=== PATIENT | female | born 1965 | race Caucasian/White ===

== ENCOUNTER 2017-07-03 14:30 | Outpatient (RCR) | payer BC, SELFPAY ==
--- NOTE | 2017-04-03 15:48 | HP.OTEVAL_ITS ---
Patient's Visit Information SANDRA SILVA is a 52 year old F, referred to Occupational Therapy by TORIBIO MENDEZ,RHEA MENDEZ,TORIBIO, with a diagnosis of subarachnoid hemorrhage. Date of Evaluation: 04/03/17 Occupational Therapist: Ewa Whalen - Subjective Subjective: Pt admitted to hospital 03/09/17 with subarachnoid hemorrhage, hydrocephalus. Pt lives w/ her spouse and daughters. 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 Pt initial visit for OT has demonstrated decreased strength and coordination of R UE and decreased ability to complete BADLs/IADLs, along with occassional decreased perpheral vision R side. - Objective Objective/Observation: Pt states she fatigues easily. She demonstrates decreased R UE fine motor coordination and strength. Pt concerned with completing multi-step tasks for her occupation as a web production assistant. Pt would benefit from occupational therapy services to increase her R hand coordination, R UE strength and increase independence with sequencing of multi- step directions for BADLs/IADLs. - ROM ROM Comments: BUE ROM WFL - Strength Shoulder: RIGHT 4-/5 LEFT 4+/5 Elbow: RIGHT 4-/5 LEFT 4+/5 Forearm: RIGHT 4-/5 LEFT 4+/5 Wrist: RIGHT 4-/5 LEFT 4+/5 Trim Master Operator: RIGHT 42# LEFT 42# Lateral Pinch: RIGHT 9#, LEFT 9# - Edema Other: NO EDEMA NOTED - Sensation Sensation Comments: PT STATES NO NUMBNESS/TINGLING - Visual/Perceptual Skills Comments: DECREASED RIGHT PERIPHERAL VISION OCCASSIONALY. INCONSISTANTLY WILL BECOME BLURRY. NO SPECIFIC TIME. - Cognitive Skills Follows Directions: Yes Oriented to (Check all that apply): Place Short Term Memory Impaired: No Cognitive Comments: PT STATES CONCERNED WITH MULTI TASKING AND SEQUENCING THROUGH TASKS 2' HER JOB REQUIRES LOTS OF MULTI TASKING. - Transfers Transfers: INDEPENDENT W/ FUNCTIONAL TRANSFERS - Nine Hole Peg Right: 26.4 SECONDS Left: 19.9 SECONDS Comments: RIGHT HAND DOMINANT - Stroke Specific Quality of Life Total SS-QOL Score: 194 - DASH-Disabilities of Arm, Shoulder& Hand DASH Sum: 39 - Goals Goal:: PT WILL PROGRESS W/ R UE STRENGTH 4+/5 TO ASSIST W/ BADLS/IADLS. Goal:: PT WILL PROGRESS W/ R HAND COORDINATION/DEXTERITY WITH DECREASED TIME IN 9 HOLE PEG TEST BY 5 SECONDS. Goal:: Pt will be educated on BUE HEP to maintain BUE strength for BADLS/IADLS w / good understanding and followthrough 100%x. Goal:: PT WILL BE ABLE TO CORRECTLY SEQUENCE THROUGH A 3 TO 4 MULTI-STEP BADL/ IADL TASK INDEPENDENTLY WITHOUT CUES NEEDED. Goal:: PT WILL BE ABLE TO USE BILATERAL COORDINATION TASKS TO TYPE A 5 SENTENCE PARAGRAPH ON KEYBOARD WITHIN 2 MINUTES. - Rehabilitation General Assessment: PT DEMO WITH DECREASED R UE COORDINATION AND R UE STRENGTH. Rehabilitation Potential: Excellent - Anticipated Interventions Anticipated Interventions: Strengthening, Fine Motor Coord/Jose Angel, ADL Training , Caregiver Training, Home Program - Visit Plan Frequency: 1-2x /Week Duration: 4 Weeks General Plan: increase pts R UE coordination/dexterity, R UE strength, educate on BUE HEP and independence w/ all BADLS/IADLS to return pt back to [facility]. TEXT: Thank you for the opportunity to evaluate your patient. For Medicare and Medicare HMO plans, please review the plan of care and approve it. It will need to be FAXED BACK to us at [phone] for Medicare purposes. Please let me know if there are questions or concerns regarding this plan of care. Physician Signature: Date:
--- NOTE | 2017-04-03 18:02 | HP.SP.AD ---
History - History Date of Eval: 04/03/17 Attending Doctor: Linda Sharp PA-C Referring Doctor: Linda Sharp PA-C Reason for Referral: Cognitive deficits status post subarachnoid hemorrhage Medical Diagnosis (from RX): Subacrachnoid hemorrhage (I60.9) Date of Onset of Diagnosis: 03/09/2017 Previous speech therapy: No Other Relevant Medical History/Diagnoses/Surgery: No significant past medical history prior to 03/09/2017 subarachnoid hemorrhage; associated complications include hydrocephalus, intraventricular hemorrhage, malnutrition of mild degree, Takotsubo cardiomyopathy, cerebral aneurysm, seizure, acute respiratory failure requiring intubation (03/10/2017 to 03/12/2017), upper gastrointestinal bleed. Medications related to this diagnosis: Discharge medications included: Acetaminophen 325mg. Aspirin 325 mg. Cetrizine / Zyrtex 10mg. Clopidogrel / Plavix 75mg. Triamcinolone acetonide / Kenelog 0.1% oitment. Senna-docusate / Senna-S 8.6-50mg Smoking Status: Never smoker Hx Smoking: No Hx Tobacco Use: No - Pain Is pain an issue with your current prescribed condition?: No - Personal Right Hearing Abillity: Normal Left Hearing Abillity: Normal Patient Allergies - Allergies Allergies No Known Allergies Allergy (Verified 03/09/17 18:51) CLQT - CLQT CLQT Administered: Yes CLQT: Cognitive Linguistic Quick Test (CLQT) is a criterion - referenced assessment designed for adults between the ages of 18 and 89 with known or suspected neurological dysfuntions. The CLQT is to assess strength and weaknesses in five cognitive domains. Severity ratings are within normal limits, mild, moderate, severe deficits. The subtests are as follows: Date: 04/03/17 - Attention Attention: WNL - Memory Memory: WNL - Executive Functions Executive Functions: WNL - Language Language: WNL - Visuospatial Skills Visuospatial Skills: WNL - Composite Severity Rating Composite Severity Rating: WNL - Clock Drawing Severity Rating Clock Drawing Severity Rating: WNL - CLQT Comments Patient scoring in lower portions of limitation for executive functioning (score 28, range 40-24) and mid-range for attention (score 197, range 215-180), with the Patient considered to be a very HIGH functioning adult prior to the subarachnoid hemorrhage, as 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 The Patient demonstrated frequent rushed completion with little attention to detail, suggesting significant impact despite good performance scores. . Plan - Plan Plan: Patient is a 52 year old female who presented to [facility] Emergency Department on 03/09/2017 due to sudden onset syncopal episode with loss of consciousness for several minutes without prodromal symptoms, Patient remained unresponsive until squad arrived, workup revealed an abnormal EKG with suspected heart attack, identified Takotsubo cardiomyopathy, later found to develop confusion, aphasia, and right sided hemiparesis with further workup revealing a subarachnoid hemorrhage with the Patient subsequently transferred to [facility]. Patients care complicated by acute respiratory failure requiring intubation (03/10/2017 to 03/12/2017), reported treatment for pneumonia (reported by family). Documentation provided by family further suggests Patients seizure activity causing / contributing to symptoms due to the relatively short duration of recovery. Patient and Patients family all report no skilled speech-language intervention to date, with the Patient yet to return to prior level of functioning. Patient and Patients family report current struggles with organization and attention, planning, and problem solving noted, further complicated by cognitive fatigue. 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 03/10/2017 CT revealed extensive subarachnoid hemorrhage within the basilar cisterns and over both cerebral convexities with intraventricular extension with concern for developing obstructive hydrocephalus, status post fright fontal approach vetriculostomy catheter placement. 03/11/2017 EGD revealed mild reflux esophagitis, non-bleeding erosive gastropathy. 03/14/2017 CT revealed development of low attenuation within the left hypothalamus consistent with acute infarct, no hemorrhagic conversion. Patient presenting with mild executive functioning deficits and mild attention deficits secondary to a subarachnoid hemorrhage complicated by seizure activity and multiple comorbidities during course of treatment. 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 The Patient demonstrated frequent rushed completion with little attention to detail, suggesting significant impact despite good performance scores. Further cognitive fatigue noted following 25 minutes of activity, with relatively rapid onset of fatigue likely to significantly impact work performance upon return. Patient requires continued skilled speech-language intervention targeting both executive functioning and attention via training and implementation of both internal and external compensatory strategies to facilitate return to the highest level of safe, independent functioning at home and within the vocational setting. Would further recommend objective assessment of the oropharyngeal swallow function due to the Patients reported complications with pneumonia following respiratory failure requiring intubation, and subarachnoid hemorrhage, with the Patient and family reporting no workup to date. - Recommendations MBS: Yes Treatment Warranted: Yes - Frequency Frequency: 1x/Week Duration: 4 Months - Prognosis Prognosis: Excellent - Goals that are Established: Determination:: Goals will be added/modified as deemed necessary and appropriate. Therapy will be discontinued when results of re-evaluation indicate therapy is no longer needed or lack of progress has been documented. - Goal #1-5 Goal #1: Patient will utilize compensatory executive functioning / processing strategies identified and implemented during structured therapeutic tasks (i.e., note taking / list making, adhering to schedules, remove distractions, formulate a plan, double check work, talk out loud, ect.) to facilitate improved cognitive processing and achievement of the highest level of safe, independent functioning Prompts: Min Accuracy: 100% # Sessions: 2 Goal #2: Patient will participate in a Modified Barium Swallow (MBS) study to objectively assess the Pt.s oropharyngeal swallowing function, to determine the least restrictive means of nutrition, and to identify appropriate intervention approaches / strategies to implement during treatment sessions at the supervised level. Prompts: Min Education - Patient has Indicated that the Following Identified Educational Needs: None The Patient has indicated that they have no educational or learning abilities that may effect their care.: Yes - Patient Instruction Patient Education: Diagnosis, Treatment Plan, Goals, Safety Precautions Person Taught: Patient Teaching Method: Discussion Response to teaching: Verbalize understanding
--- NOTE | 2017-04-03 18:05 | HP.SP.AD_ITS ---
History - History Date of Eval: 04/03/17 Attending Doctor: Linda Sharp PA-C Referring Doctor: Linda Sharp PA-C Reason for Referral: Cognitive deficits status post subarachnoid hemorrhage Medical Diagnosis (from RX): Subacrachnoid hemorrhage (I60.9) Date of Onset of Diagnosis: 03/09/2017 Previous speech therapy: No Other Relevant Medical History/Diagnoses/Surgery: No significant past medical history prior to 03/09/2017 subarachnoid hemorrhage; associated complications include hydrocephalus, intraventricular hemorrhage, malnutrition of mild degree , Takotsubo cardiomyopathy, cerebral aneurysm, seizure, acute respiratory failure requiring intubation (03/10/2017 to 03/12/2017), upper gastrointestinal bleed. Medications related to this diagnosis: Discharge medications included: Acetaminophen 325mg. Aspirin 325 mg. Cetrizine / Zyrtex 10mg. Clopidogrel / Plavix 75mg. Triamcinolone acetonide / Kenelog 0.1% oitment. Senna-docusate / Senna-S 8.6-50mg Smoking Status: Never smoker Hx Smoking: No Hx Tobacco Use: No - Pain Is pain an issue with your current prescribed condition?: No - Personal Right Hearing Abillity: Normal Left Hearing Abillity: Normal Patient Allergies - Allergies Allergies No Known Allergies Allergy (Verified 03/09/17 18:51) CLQT - CLQT CLQT Administered: Yes CLQT: Cognitive Linguistic Quick Test (CLQT) is a criterion - referenced assessment designed for adults between the ages of 18 and 89 with known or suspected neurological dysfuntions. The CLQT is to assess strength and weaknesses in five cognitive domains. Severity ratings are within normal limits , mild, moderate, severe deficits. The subtests are as follows: Date: 04/03/17 - Attention Attention: WNL - Memory Memory: WNL - Executive Functions Executive Functions: WNL - Language Language: WNL - Visuospatial Skills Visuospatial Skills: WNL - Composite Severity Rating Composite Severity Rating: WNL - Clock Drawing Severity Rating Clock Drawing Severity Rating: WNL - CLQT Comments Patient scoring in lower portions of limitation for executive functioning ( score 28, range 40-24) and mid-range for attention (score 197, range 215-180), with the Patient considered to be a very HIGH functioning adult prior to the subarachnoid hemorrhage, as 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 The Patient demonstrated frequent rushed completion with little attention to detail, suggesting significant impact despite good performance scores. . Plan - Plan Plan: Patient is a 52 year old female who presented to [facility] Emergency Department on 03/09/2017 due to sudden onset syncopal episode with loss of consciousness for several minutes without prodromal symptoms, Patient remained unresponsive until squad arrived, workup revealed an abnormal EKG with suspected heart attack, identified Takotsubo cardiomyopathy, later found to develop confusion, aphasia, and right sided hemiparesis with further workup revealing a subarachnoid hemorrhage with the Patient subsequently transferred to [facility]. Patients care complicated by acute respiratory failure requiring intubation (03/10/2017 to 09/2016), reported treatment for pneumonia (reported by family). Documentation provided by family further suggests Patient?s seizure activity causing / contributing to symptoms due to the relatively short duration of recovery. Patient and Patients family all report no skilled speech-language intervention to date, with the Patient yet to return to prior level of functioning. Patient and Patients family report current struggles with organization and attention, planning, and problem solving noted, further complicated by cognitive fatigue. 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 03/10/2017 CT revealed extensive subarachnoid hemorrhage within the basilar cisterns and over both cerebral convexities with intraventricular extension with concern for developing obstructive hydrocephalus , status post fright fontal approach vetriculostomy catheter placement. 2016 EGD revealed mild reflux esophagitis, non-bleeding erosive gastropathy. CT revealed development of low attenuation within the left hypothalamus consistent with acute infarct, no hemorrhagic conversion. Patient presenting with mild executive functioning deficits and mild attention deficits secondary to a subarachnoid hemorrhage complicated by seizure activity and multiple comorbidities during course of treatment. 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 The Patient demonstrated frequent rushed completion with little attention to detail, suggesting significant impact despite good performance scores. Further cognitive fatigue noted following 25 minutes of activity, with relatively rapid onset of fatigue likely to significantly impact work performance upon return. Patient requires continued skilled speech- language intervention targeting both executive functioning and attention via training and implementation of both internal and external compensatory strategies to facilitate return to the highest level of safe, independent functioning at home and within the vocational setting. Would further recommend objective assessment of the oropharyngeal swallow function due to the Patients reported complications with pneumonia following respiratory failure requiring intubation, and subarachnoid hemorrhage, with the Patient and family reporting no workup to date. - Recommendations MBS: Yes Treatment Warranted: Yes - Frequency Frequency: 1x/Week Duration: 4 Months - Prognosis Prognosis: Excellent - Goals that are Established: Determination:: Goals will be added/modified as deemed necessary and appropriate. Therapy will be discontinued when results of re-evaluation indicate therapy is no longer needed or lack of progress has been documented. - Goal #1-5 Goal #1: Patient will utilize compensatory executive functioning / processing strategies identified and implemented during structured therapeutic tasks (i.e. , note taking / list making, adhering to schedules, remove distractions, formulate a plan, double check work, talk out loud, ect.) to facilitate improved cognitive processing and achievement of the highest level of safe, independent functioning Prompts: Min Accuracy: 100% # Sessions: 2 Goal #2: Patient will participate in a Modified Barium Swallow (MBS) study to objectively assess the Pt.?s oropharyngeal swallowing function, to determine the least restrictive means of nutrition, and to identify appropriate intervention approaches / strategies to implement during treatment sessions at the supervised level. Prompts: Min Education - Patient has Indicated that the Following Identified Educational Needs: None The Patient has indicated that they have no educational or learning abilities that may effect their care.: Yes - Patient Instruction Patient Education: Diagnosis, Treatment Plan, Goals, Safety Precautions Person Taught: Patient Teaching Method: Discussion Response to teaching: Verbalize understanding
--- NOTE | 2017-04-06 14:13 | HP.PTEVAL_ITS ---
Patient's Visit Information SANDRA SILVA is a 52 year old F referred to Physical Therapy by TORIBIO HSU with a diagnosis of SAH, gait difficulty. Date of Evaluation: 04/03/17 Physical Therapist: Oscar Garces - Visit Plan Frequency: 2x /Week Duration: 4 Weeks Plan: Start with R hip, RLE strengthening, dynamic balance/coordinations training. Monitor response to treatment and progress as tolerated. - Subjective Subjective: Pt. is here today for her initial evaluation with diagnosis of subarachnoid hemrorhage, hydrocephalus and gait abnormality. Pt admitted to hospital 03/09/17 with subarachnoid hemorrhage, hydrocephalus. Pt lives w/ her spouse and daughters. 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 Pt. was in ICU at [facility] for ~2 weeks then on step down unit for another week, ultimately returning home on Friday. Pt. reports stop using a walker for ambulation yesterday. Pt. reports no pain currently, she denies blurred vision, double vision, or PAGE. She does report have difficulty with R peripheral vision, but comes and goes. Pt. is hopeful to get back to all recreationaland work activities without limitations. - Objective POSTURE: Pt. has normal posture in stance, without postural sway. Pt. has slight FH posture with rounded shoulders. PALPATION: Pt. has no pain to palpation of LEs. Pt. has negative homans signs in bilateral calves. NEUROLOGICAL: Pt. has normal sensation to light and sharp touch bilaterally. Pt. has has 2+ achilles and patellar DTR bilaterally. Pt. is able to rise on heels and toes without LOB or signs of visible weakness. ROM: Pt. has full ROM of bilateral LEs without increase in symptoms. Pt. does have tighter HS of bilateral LEs 67deg on R side, 73deg on L side. MMT: LLE- ankle 5/5 throughout ; knee- ext 5/5, flexion 5/5; hip- flexion 4+/5, abd 4/5, ext 4+/5. RLE- ankle PF 5/5, DF 4+/5; knee- ext 5-/5, flexion 4+/5; hip- flexion 4/5, abd 4/5, ext 4/ 5. Core strength- poor+. GAIT: Pt. ambulates without AD, she has decreased tempo, normal/symetrical step length bilaterally. Pt. does have visible increased R hip weakness during stance phase. Pt. occassionally deviates from her path, but is able to correct with stepping stratagies. STAIRS: Pt. was able to complete with reciprocal pattern with use of BHR without LOB, but did have slight eccentric lowering functional weakness. - Balance Scores Functional Gait Assessment Score: 20 % Disability: 33.3400 - Goals Goal 1:: Pt. to be I with HEP. Goal Time Frame: 4-6 Weeks Goal 2:: Pt. to have increased R hip and LE strength by 1/2 grade of effected musculature allowing for increased stability with all functional mobility. Goal Time Frame: 2-4 Weeks Goal 3:: Pt. to have ambulate unlimited distances with normal gait pattern independently. Goal Time Frame: 2-4 Weeks Goal 4:: Pt. to have improved FGA to 30/30 indicating reduced risk for falls. Goal Time Frame: 2-4 Weeks Goal 5:: Pt. to have ambulate >700meters in 6 minute walk test indicating increased overall endurance. Goal Time Frame: 2-4 Weeks Goal 6:: Pt. to negotiate 2 flights of stairs without HR with reciprocal pattern independently. Goal Time Frame: 2-4 Weeks - Rehabilitation Potential Physical Therapy Diagnosis: Pt. presents with signs and symptoms consistent with R sided weakness, balance inconsistencies after SAH. Pt. would benefit from PT to address above limitations getting back to PLOF/ Rehabilitation Potential: Excellent - Anticipated Interventions Patient/Client Instruction: Educate patient on: Condition, Plan of Care, Risk Factors, Benefits of Fitness Program For the Purpose of:: To reduce risk of recurrence, To improve safety, To improve health and function, To foster healthy habits, To improve decision making, To facilitate caregiver knowledge, To improve self management, To prevent re-injury, To improve ability to perform tasks related to life management, To improve tolerance to ADL's Therapeutic Exercise to Include: Strength training, Power training, Endurance training, Balance training, Coordination, Agility training, Postural training, Gait and locomotor training, Dynamic Lumbar Stabilization For the Purpose of:: To improve nutrient delivery to tissue, To increase oxygenation perfusion, To improve ability to perform ADL's, To increase tolerance to activity/condition/position, To improve performance and independence with ADL's, To improve ability of physical actions for home/ community/work/leisure, To improve gait and locomotor functions, To decrease soft tissue restriction, To increase flexibility/ROM, To improve endurance, To improve balance Thank you for the opportunity to evaluate your patient. For Medicare and Medicare HMO plans, please review the plan of care and approve it. It will need to be FAXED BACK to us at [phone] for Medicare purposes. Please let me know if there are questions or concerns regarding this plan of care. Physician Signature: Date:
--- NOTE | 2017-06-18 15:13 | HP.OTDCNRP_ITS ---
HP - Discharge Summary - Patient Information SANDRA SILVA was seen in my office for initial evaluation on 04/03/17. The following Plan of Care was established for this patient: Initial Frequency: 1-2x /Week Initial Duration: 4 Weeks Plan: Continue w/ prior POC. Pt states going to see her doctor this . - Anticipated Interventions Anticipated Interventions: Strengthening, Fine Motor Coord/Jose Angel, ADL Training , Caregiver Training, Home Program This patient was last seen in our office 04/22/17. Pertinent comments regarding their Occupational therapy will appear below: Pt d/c from OT secondary to last scheduled visit 04/22/17. Pt made good progress with OT goals. Pt completing BUE strenghening exercises using 5# to 10# weights all planes. Pt educated on using 5# dumbell weights at home to increase R UE strength. Pt demo increased hand manipulation and coordination of R hand. Pt completing 9 hole peg test of R hand 23.3sec. at last visit. Pt d/c from OT services. At this point I will be discontinuing this patient from occupational therapy. I would be happy to see this patient again in the future if found appropriate by the physician. Thank you! Ewa Whalen
--- NOTE | 2017-10-30 13:54 | HP.SP.DC ---
ST Discharge Summary - Discharged: Discharge: Patient has participated in 6 skilled speech-language intervention sessions targeting mild executive functioning deficits and mild attention deficits secondary to a subarachnoid hemorrhage complicated by seizure activity and multiple comorbidities during course of treatment. Patient has returned to the vocational setting after initiation of her vocational re-integration plan, with follow up session initially planned for one month post 07/03/2017 treatment session; no further reported need for intervention following session, with Patient subsequently discharged from caseload.
--- NOTE | 2017-10-31 09:38 | HP.PTDCNRP_ITS ---
HP - Discharge Summary (1) - Patient Information SANDRA SLIVA was seen in my office for initial evaluation on 04/03/17. The following Plan of Care was established for this patient: Initial Frequency: 2x /Week Initial Duration: 4 Weeks - Anticipated Interventions Patient/Client Instruction: Educate patient on: Condition, Plan of Care, Risk Factors, Benefits of Fitness Program For the Purpose of:: To reduce risk of recurrence, To improve safety, To improve health and function, To foster healthy habits, To improve decision making, To facilitate caregiver knowledge, To improve self management, To prevent re-injury, To improve ability to perform tasks related to life management, To improve tolerance to ADL's Therapeutic Exercise to Include: Strength training, Power training, Endurance training, Balance training, Coordination, Agility training, Postural training, Gait and locomotor training, Dynamic Lumbar Stabilization For the Purpose of:: To improve nutrient delivery to tissue, To increase oxygenation perfusion, To improve ability to perform ADL's, To increase tolerance to activity/condition/position, To improve performance and independence with ADL's, To improve ability of physical actions for home/ community/work/leisure, To improve gait and locomotor functions, To decrease soft tissue restriction, To increase flexibility/ROM, To improve endurance, To improve balance This patient was last seen in our office 04/22/17. Pertinent comments regarding their Physical therapy will appear below: Pt. was see in PT status post CVA. Pt. progressed very well with PT without adverse reacton. He balance and strength was returning well at our last visit. She was to follow up with physician then back to PT if needed. Pt. has not been seenin ~6 months and will be DC from PT at this point in time. At this point I will be discontinuing this patient from physical therapy. I would be happy to see this patient again in the future if found appropriate by the physician. Thank you! Oscar Garces
== END 2017-07-03 19:00 | disposition home or self-care (01) ==
LOC: SP 14:30
PROVIDERS: Family Provider Nurse Practitioner Family; PCP Nurse Practitioner Family
DX: I60.9 Nontraumatic subarachnoid hemorrhage, unspecified (principal); G91.9 Hydrocephalus, unspecified; R26.9 Unspecified abnormalities of gait and mobility; E87.1 Hypo-osmolality and hyponatremia
CPT/HCPCS: 92507; 92523; 97110; 97163; 97165; 97530

== ENCOUNTER → 2019-04-26 07:15 | Outpatient (CLI) | payer BC, SELFPAY ==
--- NOTE | 2019-04-26 07:17 | CT_ITS ---
STUDY: CT BRAIN AND SINUSES WITHOUT CONTRAST REASON FOR EXAM: Female, 54 years old. SINUSITIS-MARIA R PROTOCOL RADIATION DOSAGE (If Supplied By Facility): CTDIvol = ( 33.06 ) mGy, DLP = ( 821.45 ) mGycm TECHNIQUE: Transaxial CT imaging of the brain was performed without administration of contrast. Individualized dose optimization techniques were used for this CT. COMPARISON: No relevant priors. FINDINGS: CT BRAIN Normal soft tissue structures. Normal calvarium. 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 Mild hydrocephalus. Normal white matter tracts of the cerebral hemispheres. Small old lacunar infarct in the left basal ganglion. Normal brainstem. Normal cerebellum. There is no intracranial hemorrhage. There are no findings of an acute ischemic infarction. CT SINUSES Post Surgical Changes: None. Frontal Sinus and Recess: Normal aeration without mucosal inflammatory disease. Ethmoidal Sinuses: Scattered mucosal inflammatory disease of the bilateral ethmoidal air cells. There is a 5.3 mm osteoma in the anterior midportion of the right ethmoid sinus. Maxillary Sinuses: Opacification of the maxillary sinuses bilaterally. Ostiomeatal Complex: Mucosal obliteration of the left maxillary infundibuli. Sphenoid Sinus: Normal aeration without mucosal inflammatory disease. Sphenoethmoidal Recess: Clear. Nasal Turbinate (Right): Middle Turbinate (Right): Normal. Middle Turbinate (Left): Normal. Inferior Turbinate (Right): Normal. Inferior Turbinate (Left): Normal. Nasal Septum: Midline. Nasal Airway: Clear. Cri biform Plate / Anterior Cranial Fossa: Normal. Orbits: Normal. CT/Sinus/Facial Bone IMPRESSION: Opacification of the maxillary sinuses bilaterally with mucosal thickening of the ethmoid sinuses. 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 Hydrocephalus Electronically Signed: Calvin Buck, at 10:06 EST , Service support ,
== END ==
PROVIDERS: Family Provider Nurse Practitioner Family; PCP Nurse Practitioner Family; Referring Provider Otolaryngology; Visit Provider Otolaryngology
DX: J32.9 Chronic sinusitis, unspecified (principal)
CPT/HCPCS: 70486